=== PATIENT | male | born 1990 | race Hispanic/Latino ===

== ENCOUNTER 2025-06-16 06:14 | Inpatient (IN) | payer BC, OTHER ==
[~2025-06-16] VITALS: Ht 162.6 cm; Wt 95.3 kg
--- NOTE | 2025-06-16 06:28 | ERN ---
ED Note History of Present Illness Stated Complaint: ABD PAIN Chief Complaint: Abdominal Pain Time Seen by MD: 06:17 Dictation: This is a 34-year-old morbidly obese male who presented to the emergency room complaining of left lower quadrant abdominal pain since yesterday. He denied any nausea vomitings or diarrhea. Just had a bowel movement yesterday. No fever chills or rigors. No blood in the urine no burning micturition. Temperature 97.6 pulse 91 respirations 20 blood pressure 154/113 pulse oximetry 99% on room air Allergies: Coded Allergies: No Known Allergies (Unverified Allergy, Unknown, 06/16/25) Past Medical History Past Medical History: No Pertinent History Surgical History: Appendectomy, Other Surgical History Other: RT KNEE Family History: Negative RN Note Reviewed/Agreed w/PFSH: Yes Review of System Dictation Constitutional: Negative for fever,chills, and weight loss Eyes: Negative for injury, pain,redness, and discharge ENT: Negative for injury,pain or swelling Cardiovascular: Negative for chest pain, palpitations, and edema Respiratory: Negative for shortness of breath, cough, and wheezing, Abdomen/GI: Positive for left lower quadrant abdominal pain, denied nausea, vomiting, diarrhea, and constipation Back: Negative for injury and pain : Negative for injury, bleeding and discharge MS/Extremity: Negative for injury and deformity Skin: Negative for rash, and discoloration Neuro: Negative for headache, weakness, numbness, tingling, and seizure Psych: Negative for suicide ideation, homicidal ideation, and hallucinations Initial Vital Sign VS Vital Signs Date Time Temp Pulse Resp B/P (MAP) Pulse Ox O2 Delivery O2 Flow Rate FiO2 06/16/25 06:16 97.5 91 20 154/113 99 Room Air 06/16/25 06:39 0 21 Physical Exam Dictation General: awake, alert, NAD morbidly obese male Head/Face: Normocephalic, atraumatic Eyes: PERRL, EOMI, vision at baseline ENT: oral cavity clear, TMs clear, no signs of infection Neck: Trachea midline, supple, no nuchal rigidity Cardiovascular: RRR, normal S1/S2, No MRGs, no JVD Respiratory: CTAB, no respiratory distress, No rales or wheezes Abdomen: Soft, non-tender, non-distended, normal bowel sounds, no guarding or rebound. Skin: Warm, dry, normal turgor, no rash MS/Extremity: Pulses equal, no cyanosis, neurovascular intact, FROM Neuro: COAx4, GCS 15, strength 5/5, CN 2-12 intact, normal cerebellar exam, normal gait, Psych: Normal behavior, mood, and affect normal Extremities-trace edema without any palpable cords, Homans sign is negative Results (Laboratory/Radiology) Laboratory/Radiology Laboratory Tests Test 06/16/25 06:38 06/16/25 08:33 White Blood Count 9.4 K/uL (4.8-10.8) Red Blood Count 5.66 MIL/uL (4.50-6.20) Hemoglobin 16.1 g/dL (14.0-18.0) Hematocrit 45.8 % (42-54) Mean Corpuscular Volume 80.9 fL (79-99) Mean Corpuscular Hemoglobin 28.4 pg (27.0-33.0) Mean Corpuscular Hemoglobin Concent 35.2 g/dL (32.0-36.0) Red Cell Distribution Width 12.2 % (11.0-15.5) Platelet Count 208 K/uL (130-400) Mean Platelet Volume 10.4 fL (7.5-10.5) Immature Granulocyte % (Auto) 0.7 % (0-1) Neutrophils (%) (Auto) 59.9 % (40.0-77.0) Lymphocytes (%) (Auto) 30.1 % (21.0-51.0) Monocytes (%) (Auto) 7.2 % (3.0-13.0) Eosinophils (%) (Auto) 1.3 % (0.0-8.0) Basophils (%) (Auto) 0.8 % (0.0-5.0) Neutrophils # (Auto) 5.6 K/uL (1.8-7.7) Lymphocytes # (Auto) 2.8 K/uL (1.0-4.8) Monocytes # (Auto) 0.7 K/uL (0.1-1.0) Eosinophils # (Auto) 0.12 K/uL (0.00-0.70) Basophils # (Auto) 0.08 K/uL (0.00-0.20) Absolute Immature Granulocyte (auto 0.07 K/uL (0-1) Nucleated Red Blood Cells 0.0 % (0.0-0.19) Sodium Level 134 mmol/L (136-145) L Potassium Level 3.9 mmol/L (3.5-5.1) Chloride Level 100 mmol/L (101-111) L Carbon Dioxide Level 27 mmol/L (21-32) Blood Urea Nitrogen 8 mg/dL (7-18) Creatinine 1.0 mg/dL (0.5-1.3) Glomerular Filtration Rate Calc 102 mL/min (>90) Random Glucose 257 mg/dL (70-105) H Total Calcium 8.3 mg/dL (8.5-10.1) L Lipase 76 U/L (16-77) Urine Color LIGHT-YELLOW (YELLOW) Urine Appearance CLEAR (CLEAR) Urine pH 5.5 (5.0-8.0) Urine Specific [place] 1.012 (1.001-1.031) Urine Protein NEGATIVE mg/dL (NEGATIVE) Urine Glucose (UA) >=1000 mg/dL (NEGATIVE) H Urine Ketones NEGATIVE mg/dL (NEGATIVE) Urine Occult Blood LARGE (NEGATIVE) H Urine Nitrate NEGATIVE (NEGATIVE) Urine Bilirubin NEGATIVE mg/dL (NEGATIVE) Urine Urobilinogen 0.2 mg/dL (0.2-1.0) Urine Leukocyte Esterase NEGATIVE Meghann/uL Urine RBC TNTC /HPF (0-1) H Urine WBC 2-5 /HPF (0-1) H Urine Bacteria None /HPF (None Seen) Labs Reviewed?: Yes CT Scan Comment: [address] [id number] IMAGING REPORT Signed PATIENT: KJ BAPTISTE MR#: [id number] : 1990 SEX: M AGE: 34 LOCATION: [facility] ORDER 1 STATUS: REG REPORT#: [id number] SERVICE 1 REASON: severe abdominal painLLQ ORDERING PHYSICIAN: TERRI LOWERY MD PROCEDURE: ABD PEL WO - CT ABDOMEN/PELVIS W/O CONTRAST EXAM: CT Abdomen and Pelvis Without IV contrast CLINICAL HISTORY: severe abdominal painLLQ TECHNIQUE: Axial computed tomography images of the abdomen and pelvis without intravenous contrast. CONTRAST: No IV contrast. COMPARISON: None provided. FINDINGS: LUNG BASES: There is mild dependent airspace disease within the bilateral lower lobes that is presumed to reflect atelectasis. No pleural effusions are seen. LIVER: The liver is enlarged in size. The right hepatic lobe measures up to 22 cm. GALLBLADDER AND BILE DUCTS: The gallbladder appears within normal limits. No radioopaque gallstones are seen. No biliary ductal dilatation is evident. PANCREAS: Unremarkable. SPLEEN: The spleen is enlarged in size, measuring 14.4 cm. ADRENAL GLANDS: Unremarkable. KIDNEYS, URETERS, AND BLADDER: 3.8 mm calculus in the left proximal ureter, approximately 5 cm from the pelviureteric junction, causing mild hydroureteronephrosis with mild perinephric fat stranding. There are a few non-obstructing calculi within the lower calyces of the bilateral kidneys. The largest measures approximately 5.3 mm in the lower calyx of the left kidney. The kidneys appear within normal limits. STOMACH AND BOWEL: Unremarkable appearance of the stomach and bowel. No evidence of bowel obstruction. No evidence suggesting enteritis or colitis. Diverticulosis involving the sigmoid and descending colon, without signs of acute diverticulitis. APPENDIX: No evidence of acute appendicitis on CT examination. PERITONEUM: No free fluid. No free air. There is a hernia defect in the umbilical region measuring approximately 1.5 cm, with herniation of omental fat. LYMPH NODES: No lymphadenopathy is evident. REPRODUCTIVE: Unremarkable as visualized. VASCULATURE: No evidence of abdominal aortic aneurysm. BONES: No aggressive appearing osseous lesion. No acute osseous pathology evident. IMPRESSION: 1. Left ureteral calculus (3.8 mm) with mild hydroureteronephrosis and perinephric fat stranding. 2. Hepatomegaly, with right hepatic lobe measuring up to 22 cm. 3. Splenomegaly, measuring 14.4 cm. 4. Umbilical hernia containing omental fat. /[place] DICTATED BY: FLORENTIN VILLA Jr., MD DATE: 06/16/251118 ELECTRONICALLY SIGNED BY: FLORENTIN VILLA Jr., MD DATE: 06/16/25 111 ED Course ED Course Orders Procedure Category Date Status Time Cbc With Differential LAB 06/16/25 Complete 06:21 Urinalysis Profile LAB 06/16/25 Complete 06:21 Ketorolac PHA 06/16/25 Complete Tromethamine 30mg/Ml 06:30 Lipase LAB 06/16/25 Complete 06:21 Basic Metabolic Panel LAB 06/16/25 Complete 06:21 Ct Abdomen/Pelvis W/O CT 06/16/25 Resulted Contrast 07:02 0.9%Nacl 1000ml (Ns PHA 06/16/25 In Process 1000ml) 07:30 Ketorolac PHA 06/16/25 Complete Tromethamine 15mg/Ml 10:00 Ceftriaxone 1g Vial PHA 06/16/25 Complete (Rocephine 1g Inj) 11:00 Morphine 2mg Syg PHA 06/16/25 Complete (Morphine 2mg Syg) 11:00 Ondansetron 4mg Inj PHA 06/16/25 Complete (Zofran 4mg Inj) 11:00 Current Medications Medications (Trade) Dose Ordered Sig/[place] Route PRN Reason Start Time Stop Time Status Last Admin Dose Admin Ceftriaxone Sodium (ROCEphine 1G INJ) 1 gm ONCE ONCE IVPB 06/16/25 11:00 06/16/25 11:01 DC Ketorolac Tromethamine (toRADol) 15 mg ONCE ONCE IV 06/16/25 10:00 06/16/25 10:01 DC 06/16/25 10:24 Ketorolac Tromethamine (toRADol) 30 mg ONCE ONCE IVP 06/16/25 06:30 06/16/25 06:31 DC 06/16/25 06:47 Morphine Sulfate (morPHINE 2MG SYG) 2 mg ONCE ONCE IVP 06/16/25 11:00 06/16/25 11:01 DC Ondansetron HCl (zoFRAN 4MG INJ) 4 mg ONCE ONCE IVP 06/16/25 11:00 06/16/25 11:01 DC Sodium Chloride 1,000 ml @ 125 mls/hr ONCE ONCE IV 06/16/25 07:30 06/16/25 15:29 06/16/25 07:08 Vital Signs Date Time Temp Pulse Resp B/P (MAP) Pulse Ox O2 Delivery O2 Flow Rate FiO2 06/16/25 10:28 97.5 97 18 124/78 97 Room Air* 0 06/16/25 06:39 98.2 98 21 153/114 97 Room Air* 0 06/16/25 06:16 97.5 91 20 154/113 99 Room Air We will perform diagnostic labs, advanced imaging and administer medications according to the patient's complaint. Once the results are available, will review and personally interpreted the labs to rule out any acute life- threatening emergency the trach require immediate intervention and treatment. I will then re-evaluate the patient after treatment and diagnostic exams have return to determine whether the patient requires any further testing, can safely be discharged home or need further admission to hospital for additional treatment and evaluation. Medical Decision Making MDM Differential diagnosis: Diverticulitis, colitis, constipation, renal colic This is a 34-year-old morbidly obese male who presented to the emergency room complaining of left lower quadrant abdominal pain since yesterday. He denied any nausea vomitings or diarrhea. Just had a bowel movement yesterday. No fever chills or rigors. No blood in the urine no burning micturition. Temperature 97.6 pulse 91 respirations 20 blood pressure 154/113 pulse oximetry 99% on room air Rationale: Tests considered and ordered secondary to shared decision making include: Previous outside records reviewed: Old ER visits. Risk of complication and/or morbidity or mortality of patient management: None Medications-Per medication reconciliation Need for hospitalization: Patient does meet criteria for hospitalization. Need for emergency major/minor surgery: No There are no social concerns with this patient. Prescription drug management Prescriptions will include symptomatic care Patient's prior external medical records from other ER visits were reviewed by me as indicated. Prior testing and results from previous visits were reviewed. Prior tests were taken into account with medical decision making and resource utilization, independent historian/historians were used to obtain complete medical history. I independently interpreted the test that were performed, results were reviewed by me and considered findings on radiology if ordered. Medical management and examination interpretation discussions were had by me with other qualified healthcare professionals as indicated for the patient's care. PATIENT IS A 34-YEAR-OLD MALE COMING IN COMPLAINING OF LEFT FLANK PAIN. DUE TO THE CONTINUES PAIN THAT THE PATIENT PRESENTED WITH PATIENT WE WILL BE ADMITTED UNDER THE CARE OF HOSPITALIST GROUP FOR ONGOING MANAGEMENT. DX & DISP Disposition: Inpatient Decision to Admit Time: 11:03 Departure Impression: Primary Impression: Kidney stone Additional Impression: Pain management Condition: Stable Referrals: NONE (PCP) TERRI LOWERY MD Jun 16, 2025 06:28 FANNY PARKS MD Jun 16, 2025 10:49
[2025-06-16 06:44] LABS: IMMATURE GRANULOCYTE ABSOLUTE 0.07 K/uL (0-1); NUCLEATED RED BLOOD CELLS 0.0 % (0.0-0.19); PLATELET COUNT (AUTO) 208 K/uL (130-400); RED BLOOD CELL COUNT(AUTO) 5.66 MIL/uL (4.50-6.20); RED CELL DISTRIBUTION WIDTH 12.2 % (11.0-15.5); WHITE BLOOD COUNT (AUTO) 9.4 K/uL (4.8-10.8)
[2025-06-16 06:58] LABS: CREATININE 1.0 mg/dL (0.5-1.3); GLOMERULAR FILTR. RATE CALC 102.0 mL/min (>90); GLUCOSE,RANDOM 257.0 mg/dL (70-105); SODIUM SERUM 134.0 mmol/L (136-145); UREA NITROGEN, BLOOD 8.0 mg/dL (7-18)
[2025-06-16] MEDS: 0.9%NACL 1000ML 1,000 ML IV ONE (07:08)
[2025-06-16 08:56] LABS: APPEARANCE,URINE CLEAR (CLEAR); GLUCOSE, URINE (UA) >=1000 mg/dL (NEGATIVE); LEUKOCYTE ESTERASE ,URINE NEGATIVE Leu/uL (NEGATIVE); NITRATE,URINE NEGATIVE (NEGATIVE); OCCULT BLOOD,URINE LARGE (NEGATIVE)
[2025-06-16 09:00] LABS: ADD UA MICROSCOPIC YES
--- NOTE | 2025-06-16 10:19 | HMCIMG ---
EXAM: CT Abdomen and Pelvis Without IV contrast CLINICAL HISTORY: severe abdominal painLLQ TECHNIQUE: Axial computed tomography images of the abdomen and pelvis without intravenous contrast. CONTRAST: No IV contrast. COMPARISON: None provided. FINDINGS: LUNG BASES: There is mild dependent airspace disease within the bilateral lower lobes that is presumed to reflect atelectasis. No pleural effusions are seen. LIVER: The liver is enlarged in size. The right hepatic lobe measures up to 22 cm. GALLBLADDER AND BILE DUCTS: The gallbladder appears within normal limits. No radioopaque gallstones are seen. No biliary ductal dilatation is evident. PANCREAS: Unremarkable. SPLEEN: The spleen is enlarged in size, measuring 14.4 cm. ADRENAL GLANDS: Unremarkable. KIDNEYS, URETERS, AND BLADDER: 3.8 mm calculus in the left proximal ureter, approximately 5 cm from the pelviureteric junction, causing mild hydroureteronephrosis with mild perinephric fat stranding. There are a few non-obstructing calculi within the lower calyces of the bilateral kidneys. The largest measures approximately 5.3 mm in the lower calyx of the left kidney. The kidneys appear within normal limits. STOMACH AND BOWEL: Unremarkable appearance of the stomach and bowel. No evidence of bowel obstruction. No evidence suggesting enteritis or colitis. Diverticulosis involving the sigmoid and descending colon, without signs of acute diverticulitis. APPENDIX: No evidence of acute appendicitis on CT examination. PERITONEUM: No free fluid. No free air. There is a hernia defect in the umbilical region measuring approximately 1.5 cm, with herniation of omental fat. LYMPH NODES: No lymphadenopathy is evident. REPRODUCTIVE: Unremarkable as visualized. VASCULATURE: No evidence of abdominal aortic aneurysm. BONES: No aggressive appearing osseous lesion. No acute osseous pathology evident. IMPRESSION: 1. Left ureteral calculus (3.8 mm) with mild hydroureteronephrosis and perinephric fat stranding. 2. Hepatomegaly, with right hepatic lobe measuring up to 22 cm. 3. Splenomegaly, measuring 14.4 cm. 4. Umbilical hernia containing omental fat. /[place]
--- NOTE | 2025-06-16 11:28 | HP ---
[facility] HISTORY AND PHYSICAL Date of Service: Jun 16, 2025 Time of Service: 11:28 HISTORY OF PRESENT ILLNESS: DATE OF SERVICE: 06/16/2025 34-year-old male with no significant past medical history presented to the hospital secondary to abdominal pain. Patient states his pain started today around 5:00 a.m.. The pain was located in the left lower quadrant radiating from his left flank area. Denied any nausea, vomiting, fever, chills, diarrhea, constipation associated with the pain. Denied any chest pain, shortness of breath, cough, sputum production. Denied any dysuria, hematuria. The patient has more darkish color urine from before. He denies any previous history of nephrolithiasis. Denied any previous passage of kidney stones. He has a history of gout which is controlled at this time. He does not take any medications at home. Labs were notable for white count of 9.4, hemoglobin was 16.1, platelet count was 208 K, sodium was 134, potassium was 3.9, blood glucose 257, calcium was 8.3, lipase was [address] abdomen pelvis which showed left ureteral calculus 3.8 mm with mild hydroureteronephrosis and perinephric fat stranding. He also had nonobstructing calculi in the lower calyces of the bilateral kidney. Largest was noted to measure around a 5.3 Mm in the lower calyx of the left kidney. Was noted to have hepatomegaly and splenomegaly. There was a umbilical hernia containing omental fat. REVIEW OF SYSTEMS CONSTITUTIONAL: Denies fevers, chills, or night sweats. No unintentional weight loss reported. NEUROLOGICAL: Denies headache, amaurosis fugax, motor weakness, sensory deficit, vertigo/spinning sensation, gait abnormalities, or tremors. ENT: No hearing loss, otalgia, otorrhea, rhinitis, rhinorrhea, hoarseness, or sore throat. CARDIOVASCULAR: Denies any exertional angina, dyspnea on exertion, orthopnea, paroxysmal nocturnal dyspnea, palpitations, life-threatening arrhythmias, claudication. PULMONARY: Denies any shortness of breath, cough, phlegm/sputum, hemoptysis, pleuritic chest pain. GASTROINTESTINAL: Positive for abdominal pain. Denied any nausea, vomiting, changes in his bowel movement. GENITOURINARY: Denies frequency, urgency, nocturia, hematuria or incontinence (Storage/Irritative symptoms.) Low urinary stream, straining to void, urinary intermittency or hesitancy, splitting of the voiding stream, terminal dribbling. ENDOCRINOLOGIC: Denies polyuria, polydipsia, polyphagia or heat/cold intolerances. HEMATOLOGIC: Denies thrombophilia/previous clots, or coagulopathy/bleeding dis orders. ONCOLOGIC: Denies personal history of malignancy. DERMATOLOGIC: Denies rashes or pruritus. PSYCHIATRIC: Denies any suicidal or homicidal ideation. Denies hallucinations. PAST MEDICAL HISTORY: History of gout PAST SURGICAL HISTORY: History of appendectomy history of right knee surgery PAST SOCIAL HISTORY: Denied any tobacco use, alcohol use, drug use. Patient used to vape but quit around one year ago FAMILY HISTORY: Family history of gout Coded Allergies: No Known Allergies (Unverified Allergy, Unknown, 06/16/25) PHYSICAL EXAM GENERAL APPEARANCE: The patient is awake, alert, and oriented, in no acute cardiopulmonary distress. NEUROLOGICAL: Cranial nerves II-XII grossly intact. Motor is 5/5 in bilateral upper and lower extremities proximal to distal. No sensory deficits. HEENT: Face is symmetric. Pupils are equal and reactive. Extraocular movements are intact. NECK: Supple. No JVD. No thyromegaly. No submental, submandibular, pre- /postauricular, occipital or supraclavicular lymphadenopathy. CHEST: Normal chest expansion. No Telemetry. LUNGS: Absence of any rales, rhonchi or any wheezing. CARDIOVASCULAR: Regular. S1 and S2 normal. No appreciable rubs, murmurs or gallops. ABDOMEN: Soft, nontender, and nondistended. There is no rebound, voluntary guarding, or rigidity. : Deferred. No Li. No CVA tenderness EXTREMITIES: Non-edematous and not cyanotic. No clubbing. Good capillary refill. SKIN: No skin breakdown. Vital Sign (Last 24 Hours) 06/16/25 10:28 Temp 97.5 Pulse 97 Resp 18 B/P (MAP) 124/78 Pulse Ox 97 O2 Delivery Room Air* O2 Flow Rate 0 FiO2 21 LABS: Laboratory: Test 06/16/25 08:33 06/16/25 06:38 Range/Units Urine Color LIGHT-YELLOW YELLOW Urine Appearance CLEAR CLEAR Urine pH 5.5 5.0-8.0 Urine Specific [place] 1.012 1.001-1.031 Urine Protein NEGATIVE NEGATIVE mg/dL Urine Glucose (UA) >=1000 H NEGATIVE mg/dL Urine Ketones NEGATIVE NEGATIVE mg/dL Urine Occult Blood LARGE H NEGATIVE Urine Nitrate NEGATIVE NEGATIVE Urine Bilirubin NEGATIVE NEGATIVE mg/dL Urine Urobilinogen 0.2 0.2-1.0 mg/dL Urine Leukocyte Esterase NEGATIVE NEGATIVE Meghann/uL Urine RBC TNTC H 0-1 /HPF Urine WBC 2-5 H 0-1 /HPF Urine Bacteria None None Seen /HPF White Blood Count 9.4 4.8-10.8 K/uL Red Blood Count 5.66 4.50-6.20 MIL/uL Hemoglobin 16.1 14.0-18.0 g/dL Hematocrit 45.8 42-54 % Mean Corpuscular Volume 80.9 79-99 fL Mean Corpuscular Hemoglobin 28.4 27.0-33.0 pg Mean Corpuscular Hemoglobin Concent 35.2 32.0-36.0 g/dL Red Cell Distribution Width 12.2 11.0-15.5 % Platelet Count 208 130-400 K/uL Mean Platelet Volume 10.4 7.5-10.5 fL Immature Granulocyte % (Auto) 0.7 0-1 % Neutrophils (%) (Auto) 59.9 40.0-77.0 % Lymphocytes (%) (Auto) 30.1 21.0-51.0 % Monocytes (%) (Auto) 7.2 3.0-13.0 % Eosinophils (%) (Auto) 1.3 0.0-8.0 % Basophils (%) (Auto) 0.8 0.0-5.0 % Neutrophils # (Auto) 5.6 1.8-7.7 K/uL Lymphocytes # (Auto) 2.8 1.0-4.8 K/uL Monocytes # (Auto) 0.7 0.1-1.0 K/uL Eosinophils # (Auto) 0.12 0.00-0.70 K/uL Basophils # (Auto) 0.08 0.00-0.20 K/uL Absolute Immature Granulocyte (auto 0.07 0-1 K/uL Nucleated Red Blood Cells 0.0 0.0-0.19 % Sodium Level 134 L 136-145 mmol/L Potassium Level 3.9 3.5-5.1 mmol/L Chloride Level 100 L 101-111 mmol/L Carbon Dioxide Level 27 21-32 mmol/L Blood Urea Nitrogen 8 7-18 mg/dL Creatinine 1.0 0.5-1.3 mg/dL Glomerular Filtration Rate Calc 102 >90 mL/min Random Glucose 257 H 70-105 mg/dL Total Calcium 8.3 L 8.5-10.1 mg/dL Lipase 76 16-77 U/L DIAGNOSTICS / RADIOLOGY: CT abdomen Was reviewed ASSESSMENT: Symptomatic left-sided nephrolithiasis Mild left hydroureteronephrosis secondary to neck Hematuria Hepatomegaly Splenomegaly Obesity BMI 36.1 Hyperglycemia PLAN: - patient to medical-surgical unit -in reference to symptomatic nephrolithiasis. Patient will be started on Flomax. We will start patient on IV fluids and morphine and Toradol for pain control. We will also request consultation with Nephrology. Continue patient on Rocephin -obtain a liver ultrasound for further evaluation of hepatomegaly. Obtain LFT panel. -check hemoglobin A1c, , TSH -further orders per hospitalization course Advanced Care Planning Which of the following were discussed: Hospice care: Yes __ No _x_ Therapeutic options: Yes __ No __ Advance directives: Yes __ No __ Other discussions: Patient is full code Discussed with who?: patient (Patient, family or surrogates) Voluntary nature of this service was explained to the patient? Yes _x_ No __ Amount of time spent: 20 minutes SRAVANI Sin MD, MD Jun 16, 2025 11:28
[2025-06-16] MEDS ORDERED: PoTASSium chl 10% ELIXIR 20MEQ 20 MEQ/15 ML UDCUP PO PRN (11:30)
[2025-06-16 12:00] LABS: TOTAL PROTEIN, SERUM 7.2 g/dL (6.0-8.3)
[2025-06-16] MEDS: 0.9%NACL 1000ML 1,000 ML IV SCH (12:02)
[2025-06-16] MEDS ORDERED: DEXTROSE 50%-WATER 50 ML DISP.SYRIN IV PRN (12:30)
[2025-06-16] MEDS ORDERED: GLUCAGON 1MG KIT 1 MG ML IM PRN (12:30)
[2025-06-16 13:02] LABS: ASPARTATE AMINOTRANSFERASE 32.0 U/L (10-37)
[2025-06-16 13:30] VITALS: O2SAT 100
[2025-06-16 13:35] VITALS: BP 162/105; PULSE 80; RESP 20; TEMP 98.4
[2025-06-16 16:10] VITALS: BP 145/93; PULSE 78; RESP 20; TEMP 98.1
--- NOTE | 2025-06-16 19:20 | CONS ---
CONSULTATION NOTE Date of Service: Jun 16, 2025 Reason for Consultation: Obstructing 3-4 mm left proximal ureteral calculus with symptoms of renal colic Requesting Physician: Yehuda Gandhi MD HISTORY OF PRESENT ILLNESS: 34-year-old male with no significant past medical history presented to the hospital secondary to abdominal pain. Patient states his pain started today around 5:00 a.m.. The pain was located in the left lower quadrant, described as a stabbing ache, radiating from his left flank area, severity at the time of presentation was an eight on a scale of 1-10. Denied any nausea, vomiting, fever, chills, diarrhea, constipation associated with the pain. Denied any dysuria, hematuria. The patient has more darkish color urine from before. He denies any previous history of nephrolithiasis. Denied any previous passage of kidney stones. He has a history of gout which is controlled at this time. He does not take any medications at home. Labs were notable for white count of 9.4, hemoglobin was 16.1, platelet count was 208 K, sodium was 134, potassium was 3.9, blood glucose 257, calcium was 8.3, lipase was 66. CT abdomen pelvis stone protocol showed left ureteral calculus 3.8 mm with mild hydroureteronephrosis and perinephric fat stranding. He also had nonobstructing calculi in the lower calyces of the bilateral kidney. Largest was noted to measure around a 5.3 mm in the lower calyx of the left kidney. Was noted to have hepatomegaly and splenomegaly. There was a umbilical hernia containing omental fat. Patient was admitted to the floor for supportive care with a urological consult. REVIEW OF SYSTEMS CONSTITUTIONAL: Denies fever, chills, or fatigue. HEAD/FACE: No signs of trauma. EENT: Denies eye pain, blurred vision, double vision, or light sensitivity. RESPIRATORY: Denies shortness of breath, cough, wheezing CARDIOVASCULAR: Denies chest pain, palpitation, syncope GASTROINTESTINAL/ABDOMINAL: Denies abdominal pain, constipation, diarrhea, nausea or vomiting GENITOURINARY: Denies dysuria or hematuria. MUSCULOSKELETAL: Denies joint pain, tenderness, or trauma. INTEGUMENTARY: Denies rash or itchiness NEUROLOGICAL/PSYCH: Denies anxiety, depression, heat or cold intolerance. PAST MEDICAL HISTORY: History of gout PAST SURGICAL HISTORY: Appendectomy, left knee surgery PAST SOCIAL HISTORY: Denies smoking cigarettes, denies ethanol, denies recreational drugs. Used to vape but quit about a year ago FAMILY HISTORY: Noncontributory Coded Allergies: No Known Allergies (Unverified Allergy, Unknown, 06/16/25) PHYSICAL EXAM EYES: Anicteric. Pupils equal and reactive. HENT: No oral thrush seen, moist Oral mucosa NECK: Supple, no JVD or thyromegaly. LUNGS: Good air entry. No rales, no rhonchi. CARDIOVASCULAR: S1, S2 regular. No murmur heard. ABDOMEN: Soft, non tender, bowel sounds present, no organomegaly CENTRAL NERVOUS SYSTEM: Awake, alert, oriented x 3. No focal deficits. SKIN: No rashes, no swelling. LYMPHATICS: No peripheral lymphadenopathy MUSCULOSKELETAL: No joint swelling, erythema or tenderness. EXTREMITIES: No cyanosis or clubbing BACK: No deformity, no pressure ulcer. GENITOURINARY: Noncontributory Vital Sign (Last 24 Hours) 06/16/25 06/16/25 10:28 16:10 Temp 98.1 Pulse 78 Resp 20 B/P (MAP) 145/93 Pulse Ox 100 O2 Delivery Room Air O2 Flow Rate 0 FiO2 21 LABS: Laboratory: Test 06/16/25 16:25 06/16/25 08:33 06/16/25 06:38 Range/Units Whole Blood Glucose 169 H 70-110 MG/DL Urine Color LIGHT-YELLOW YELLOW Urine Appearance CLEAR CLEAR Urine pH 5.5 5.0-8.0 Urine Specific [place] 1.012 1.001-1.031 Urine Protein NEGATIVE NEGATIVE mg/dL Urine Glucose (UA) >=1000 H NEGATIVE mg/dL Urine Ketones NEGATIVE NEGATIVE mg/dL Urine Occult Blood LARGE H NEGATIVE Urine Nitrate NEGATIVE NEGATIVE Urine Bilirubin NEGATIVE NEGATIVE mg/dL Urine Urobilinogen 0.2 0.2-1.0 mg/dL Urine Leukocyte Esterase NEGATIVE NEGATIVE Meghann/uL Urine RBC TNTC H 0-1 /HPF Urine WBC 2-5 H 0-1 /HPF Urine Bacteria None None Seen /HPF White Blood Count 9.4 4.8-10.8 K/uL Red Blood Count 5.66 4.50-6.20 MIL/uL Hemoglobin 16.1 14.0-18.0 g/dL Hematocrit 45.8 42-54 % Mean Corpuscular Volume 80.9 79-99 fL Mean Corpuscular Hemoglobin 28.4 27.0-33.0 pg Mean Corpuscular Hemoglobin Concent 35.2 32.0-36.0 g/dL Red Cell Distribution Width 12.2 11.0-15.5 % Platelet Count 208 130-400 K/uL Mean Platelet Volume 10.4 7.5-10.5 fL Immature Granulocyte % (Auto) 0.7 0-1 % Neutrophils (%) (Auto) 59.9 40.0-77.0 % Lymphocytes (%) (Auto) 30.1 21.0-51.0 % Monocytes (%) (Auto) 7.2 3.0-13.0 % Eosinophils (%) (Auto) 1.3 0.0-8.0 % Basophils (%) (Auto) 0.8 0.0-5.0 % Neutrophils # (Auto) 5.6 1.8-7.7 K/uL Lymphocytes # (Auto) 2.8 1.0-4.8 K/uL Monocytes # (Auto) 0.7 0.1-1.0 K/uL Eosinophils # (Auto) 0.12 0.00-0.70 K/uL Basophils # (Auto) 0.08 0.00-0.20 K/uL Absolute Immature Granulocyte (auto 0.07 0-1 K/uL Nucleated Red Blood Cells 0.0 0.0-0.19 % Sodium Level 134 L 136-145 mmol/L Potassium Level 3.9 3.5-5.1 mmol/L Chloride Level 100 L 101-111 mmol/L Carbon Dioxide Level 27 21-32 mmol/L Blood Urea Nitrogen 8 7-18 mg/dL Creatinine 1.0 0.5-1.3 mg/dL Glomerular Filtration Rate Calc 102 >90 mL/min Random Glucose 257 H 70-105 mg/dL Hemoglobin A1c 11.1 H 4.0-6.0 % Estimated Average Glucose (eAG) 272 H 70-126 mg/dL Total Calcium 8.3 L 8.5-10.1 mg/dL Total Bilirubin 0.4 0.2-1.0 mg/dL Direct Bilirubin 0.1 0.0-0.3 mg/dL Aspartate Amino Transf (AST/SGOT) 32 10-37 U/L Alanine Aminotransferase (ALT/SGPT) 69 12-78 U/L Alkaline Phosphatase 147 H 50-136 U/L Total Protein 7.2 6.0-8.3 g/dL Albumin 3.7 3.5-5.0 g/dL Lipase 76 16-77 U/L DIAGNOSTICS / RADIOLOGY: CT abdomen and pelvis, stone protocol, evidence of a 3-4 mm left proximal ureteral calculus with mild hydroureteronephrosis. There are nonobstructing calyceal stones, more stone burden on the left than on the right. ASSESSMENT: 34-year-old man presents to the hospital secondary to renal colic symptoms caused by 3-4 mm stone in the left proximal ureter. PLAN: 1. Continue supportive care, aggressive pain management, Ketoralac has been shown to work very well, fluid management and nausea control if any. 2. The evidence is not very convincing on tamsulosin for proximal stones by sidney barrerant can be started on tamsulosin, with concurrent judicious fluid management 3. We will give patient at least a 24-48 hour window to see if he is able to pass the stone. Normally we will repeat a CT imaging at that time they make a decision about surgical intervention if no change in clinical picture. 4. Thank you for involving us in the care of this patient. 60 minute was spent to complete this visit, more than half of the time was spent in counseling and coordination of care and addressing questions posed by patient, some time was spent discussing with members of his care team, the rest of the time was spent reviewing medical records especially laboratory data and imaging studies. SUSIE RHODES MD Jun 16, 2025 19:20
[2025-06-16 20:00] VITALS: BP 144/84; PULSE 86; RESP 18; TEMP 98.7; O2SAT 95
[2025-06-16] MEDS: FAMOTIDINE 20MG VIAL IV SCH (21:08)
--- NOTE | 2025-06-16 22:54 | NUR ---
DIET MODIFIED RULA FILING MACHINE OPERATOR ON FLOOR FOR WALKING ROUNDS. ADVISED OF PATIENT'S DIABETES DIAGNOSIS AND CURRENT BLAND DIET. ASKED IF OKAY TO PLACE THE PATIENT ON BLAND DIET/ CONSISTENT CARB. PER RULA FILING MACHINE OPERATOR: OKAY TO ADD CONSISTENT CARB ON PATIENT'S DIET ORDER. ORDER NOTED AND CARRIED OUT.
[2025-06-17] VITALS (8 sets, daily range): BP systolic 121–150; BP diastolic 68–103; PULSE 72–102; RESP 16–20; TEMP 98–98.9; O2SAT 97
--- NOTE | 2025-06-17 00:31 | HMCIMG ---
EXAMINATION: ULTRASOUND OF THE ABDOMEN (LIMITED) WITH COLOR DOPPLER. CLINICAL HISTORY: Assess liver. COMPARISON: CT abdomen and pelvis without contrast from the same day. TECHNIQUE: Real-time grayscale ultrasound images of the abdomen. In addition, color Doppler is medically necessary to perform in order to evaluate vascularity and blood flow. FINDINGS: Liver: Bulky in caliber, the right hepatic lobe measures 19.9 cm in the craniocaudal dimension. There is increased echogenicity of the hepatic parenchyma. There is no focal hepatic abnormality or intrahepatic biliary ductal dilatation. There is normal spectral Doppler of the main portal vein (PSV is 19 cm/s). Gallbladder: Within normal limits with normal wall thickness (0.1 cm). No hyperemia or pericholecystic free fluid. There is no cholelithiasis. Common bile duct is normal in caliber, measuring 0.3 cm. Pancreas: Head and body appear normal in caliber and echotexture. No calcification or dilated pancreatic duct. Tail is obscured by overlying bowel gas. The right kidney is normal in caliber, the right kidney measures 12.9 x 4.9 x 4.2 cm in craniocaudal, AP, and transverse dimensions respectively. There is normal renal cortical thickness, and cortical echogenicity. There is no renal calculus or hydronephrosis. IMPRESSION: Hepatomegaly with hepatic steatosis. Left renal calculi which was seen in CT study from the same day are not visualized. /Jose Manuel
[2025-06-17 06:25] LABS: IMMATURE GRANULOCYTE ABSOLUTE 0.04 K/uL (0-1); NUCLEATED RED BLOOD CELLS 0.0 % (0.0-0.19); PLATELET COUNT (AUTO) 158 K/uL (130-400); RED BLOOD CELL COUNT(AUTO) 5.24 MIL/uL (4.50-6.20); RED CELL DISTRIBUTION WIDTH 12.0 % (11.0-15.5); WHITE BLOOD COUNT (AUTO) 10.9 K/uL (4.8-10.8)
[2025-06-17 06:37] LABS: CREATININE 1.4 mg/dL (0.5-1.3); GLOMERULAR FILTR. RATE CALC 68.0 mL/min (>90); GLUCOSE,RANDOM 173.0 mg/dL (70-105); SODIUM SERUM 136.0 mmol/L (136-145); UREA NITROGEN, BLOOD 10.0 mg/dL (7-18)
[2025-06-17] MEDS: PoTASSium chloRIDE 20MEQ ER 20 MEQ ERTAB PO PRN (06:50)
--- NOTE | 2025-06-17 11:06 | NUR ---
DCP: [facility] met with pt and Monika Tapia [phone]. 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 Pt state he thought he had insurance until speaking to and was informed he never did paperwork. Pt was told he has to go into and complete upon dc. Pt has no PCP, uses [facility] for rx. Community resources given. Pt lives with his and 3 daughters in [facility], deny issues affording home and food. Pt uses no provider or services. Pt is independent of all his ADLS. DCP is home Addendum: 06/17/25 at 1110 by FORTUNATO DAY Amended: Links added.
--- NOTE | 2025-06-17 17:05 | HMCIMG ---
EXAM: CT Abdomen and Pelvis without IV contrast CLINICAL HISTORY: RENAL CALCULI EVALUATION TECHNIQUE: Axial computed tomography images of the abdomen and pelvis without intravenous contrast. CT scan performed according to ALARA. Automated exposure control used during exam. CONTRAST: without intravenous contrast. COMPARISON: CT images dated June 16, 2025 FINDINGS: Mild airspace disease within the left lung base. Trace left pleural effusion. Limited evaluation of the abdominal organs without intravenous contrast. There is no focal abnormality appreciated within the liver; however there is hepatic steatosis. The gallbladder, bilateral adrenal glands, spleen, and pancreas are unremarkable. There is a 0.4 cm calculus within the mid left ureter (approximately 6.0 cm distal to the left ureteropelvic junction) resulting in mild left hydronephrosis and left perinephric fat stranding. Nonobstructing calculi are noted within a left inferior pole renal calyx. No additional radiopaque calculus appreciated. Bowel loops are normal in caliber without evidence of obstruction, ileus, or obvious bowel wall thickening. No CT evidence of acute appendicitis. The mild to within the unopacified bladder. Prostate and seminal vesicles are normal in caliber. There is no ascites or lymphadenopathy. There is no acute or suspicious osseous abnormality. IMPRESSION: 1. 0.4 cm left ureteral calculus with mild left hydronephrosis and perinephric fat stranding. 2. Nonobstructing left inferior pole renal calyx calculi. 3. Mild left basal airspace disease with trace left pleural effusion. /[place]
--- NOTE | 2025-06-17 17:40 | PN ---
[facility] PROGRESS NOTE Date of Service: Jun 17, 2025 Time of Service: 17:39 SUBJECTIVE: 34-year-old male with no significant past medical history presented to the hospital secondary to abdominal pain. Patient states his pain started today around 5:00 a.m.. The pain was located in the left lower quadrant radiating from his left flank area. Denied any nausea, vomiting, fever, chills, diarrhea, constipation associated with the pain. Denied any chest pain, shortness of breath, cough, sputum production. Denied any dysuria, hematuria. The patient has more darkish color urine from before. He denies any previous history of nephrolithiasis. Denied any previous passage of kidney stones. He has a history of gout which is controlled at this time. He does not take any medications at home. Labs were notable for white count of 9.4, hemoglobin was 16.1, platelet count was 208 K, sodium was 134, potassium was 3.9, blood glucose 257, calcium was 8.3, lipase was [address] abdomen pelvis which showed left ureteral calculus 3.8 mm with mild hydroureteronephrosis and perinephric fat stranding. He also had nonobstructing calculi in the lower calyces of the bilateral kidney. Largest was noted to measure around a 5.3 Mm in the lower calyx of the left kidney. Was noted to have hepatomegaly and splenomegaly. There was a umbilical hernia containing omental fat. 06/17/25: Patient appeared stable but still in pain. His vitals are mostly stable with his temperature at 98.2, pulse at 99, respiratory rate at 20 and blood pressure at 147/103, breathing comfortably on room air. He is on morphine 2 mg and ketoralac 15 mg for the pain. He has also juliano started on IV fluids and Flomax per urology recommendation. Urology also recommended, that they will give patient at least a 24-48 hour window to see if he is able to pass the stone. Normally we will repeat a CT imaging at that time they make a decision about surgical intervention if no change in clinical picture. So we performed a repeat CT in the evening today which showed the stone has moved from proximal ureter to mid ureter. We will wait for recommendation from urology for further treatment. Patient also seen with hepatomegaly and splenomegaly since the first CT, but patients LFTs and remaining labs are normal. REVIEW OF SYSTEMS CONSTITUTIONAL: Denies fevers, chills, or night sweats. No unintentional weight loss reported. NEUROLOGICAL: Denies headache, motor weakness, sensory deficit, vertigo/spinning sensation, gait abnormalities, or tremors. ENT: No hearing loss, rhinitis, rhinorrhea, hoarseness, or sore throat. CARDIOVASCULAR: Denies any exertional angina, dyspnea on exertion, orthopnea, paroxysmal nocturnal dyspnea PULMONARY: Denies any shortness of breath, cough, phlegm/sputum, hemoptysis, pleuritic chest pain. GASTROINTESTINAL: Positive for abdominal pain. Denied any nausea, vomiting, changes in his bowel movement. GENITOURINARY: Denies frequency, urgency, nocturia, hematuria or incontinence ENDOCRINOLOGIC: Denies polyuria, polydipsia, polyphagia or heat/cold into lerances. HEMATOLOGIC: Denies thrombophilia/previous clots, or coagulopathy/bleeding disorders. DERMATOLOGIC: Denies rashes or pruritus. PHYSICAL EXAM GENERAL APPEARANCE: The patient is awake, alert, and oriented, in no acute cardiopulmonary distress. NEUROLOGICAL: Cranial nerves II-XII grossly intact. Motor is 5/5 in bilateral upper and lower extremities proximal to distal. No sensory deficits. HEENT: Face is symmetric. Pupils are equal and reactive. Extraocular movements are intact. NECK: Supple. No JVD. No thyromegaly. No lymphadenopathy. CHEST: Normal chest expansion. No Telemetry. LUNGS: Absence of any rales, rhonchi or any wheezing. CARDIOVASCULAR: Regular. S1 and S2 normal. No appreciable rubs, murmurs or gallops. ABDOMEN: Soft, nontender, and nondistended. There is no rebound, voluntary guarding, or rigidity. : Deferred. No Li. No CVA tenderness EXTREMITIES: Non-edematous and not cyanotic. No clubbing. Good capillary refill. SKIN: No skin breakdown. Vital Signs (last 8hr) Date Time Temp Pulse Resp B/P (MAP) Pulse Ox O2 Delivery O2 Flow Rate FiO2 06/17/25 16:07 99.0 93 16 143/98 99 Room Air 06/17/25 10:47 98.1 102 18 150/91 100 Room Air LABS: Laboratory: Test 06/17/25 15:57 06/17/25 03:54 06/16/25 08:33 9/21/25 06:38 Range/Units Whole Blood Glucose 184 H 70-110 MG/DL Bedside Glucose Comment Notified Nurse White Blood Count 10.9 H 4.8-10.8 K/uL Red Blood Count 5.24 4.50-6.20 MIL/uL Hemoglobin 14.8 14.0-18.0 g/dL Hematocrit 43.4 42-54 % Mean Corpuscular Volume 82.8 79-99 fL Mean Corpuscular Hemoglobin 28.2 27.0-33.0 pg Mean Corpuscular Hemoglobin Concent 34.1 32.0-36.0 g/dL Red Cell Distribution Width 12.0 11.0-15.5 % Platelet Count 158 130-400 K/uL Mean Platelet Volume 10.9 H 7.5-10.5 fL Immature Granulocyte % (Auto) 0.4 0-1 % Neutrophils (%) (Auto) 78.2 H 40.0-77.0 % Lymphocytes (%) (Auto) 12.7 L 21.0-51.0 % Monocytes (%) (Auto) 7.7 3.0-13.0 % Eosinophils (%) (Auto) 0.6 0.0-8.0 % Basophils (%) (Auto) 0.4 0.0-5.0 % Neutrophils # (Auto) 8.5 H 1.8-7.7 K/uL Lymphocytes # (Auto) 1.4 1.0-4.8 K/uL Monocytes # (Auto) 0.8 0.1-1.0 K/uL Eosinophils # (Auto) 0.06 0.00-0.70 K/uL Basophils # (Auto) 0.04 0.00-0.20 K/uL Absolute Immature Granulocyte (auto 0.04 0-1 K/uL Nucleated Red Blood Cells 0.0 0.0-0.19 % Sodium Level 136 136-145 mmol/L Potassium Level 3.6 3.5-5.1 mmol/L Chloride Level 101 101-111 mmol/L Carbon Dioxide Level 25 21-32 mmol/L Blood Urea Nitrogen 10 7-18 mg/dL Creatinine 1.4 H 0.5-1.3 mg/dL Glomerular Filtration Rate Calc 68 >90 mL/min Random Glucose 173 H 70-105 mg/dL Total Calcium 8.2 L 8.5-10.1 mg/dL Thyroid Stimulating Hormone (TSH) 0.76 0.36-3.74 uIU/mL Urine Color LIGHT-YELLOW YELLOW Urine Appearance CLEAR CLEAR Urine pH 5.5 5.0-8.0 Urine Specific [place] 1.012 1.001-1.031 Urine Protein NEGATIVE NEGATIVE mg/dL Urine Glucose (UA) >=1000 H NEGATIVE mg/dL Urine Ketones NEGATIVE NEGATIVE mg/dL Urine Occult Blood LARGE H NEGATIVE Urine Nitrate NEGATIVE NEGATIVE Urine Bilirubin NEGATIVE NEGATIVE mg/dL Urine Urobilinogen 0.2 0.2-1.0 mg/dL Urine Leukocyte Esterase NEGATIVE NEGATIVE Meghann/uL Urine RBC TNTC H 0-1 /HPF Urine WBC 2-5 H 0-1 /HPF Urine Bacteria None None Seen /HPF Hemoglobin A1c 11.1 H 4.0-6.0 % Estimated Average Glucose (eAG) 272 H 70-126 mg/dL Total Bilirubin 0.4 0.2-1.0 mg/dL Direct Bilirubin 0.1 0.0-0.3 mg/dL Aspartate Amino Transf (AST/SGOT) 32 10-37 U/L Alanine Aminotransferase (ALT/SGPT) 69 12-78 U/L Alkaline Phosphatase 147 H 50-136 U/L Total Protein 7.2 6.0-8.3 g/dL Albumin 3.7 3.5-5.0 g/dL Lipase 76 16-77 U/L Current Medications Medications (Trade) Dose Ordered Sig/[place] Route PRN Reason Start Time Stop Time Status Last Admin Dose Admin Acetaminophen (TYLenol 500MG TAB) 500 mg Q6H PRN PO MILD PAIN (1-3) 06/16/25 11:30 07/16/25 11:29 06/16/25 17:49 500 MG Ceftriaxone Sodium (ROCEphine 1G INJ) 1 gm Q24H IVPB 06/17/25 09:00 06/27/25 08:59 06/17/25 08:27 1 GM Dextrose (D50w) 50 ml AD PRN IV HYPOGLYCEMIA PROTOCOL 06/16/25 12:30 07/16/25 12:29 Famotidine (Pepcid 20mg Vial) 20 mg BID IV 06/16/25 21:00 07/16/25 20:59 06/17/25 08:29 20 MG Glucagon (Glucagon 1mg Kit) 1 mg AD PRN IM HYPOGLYCEMIA PROTOCOL 06/16/25 12:30 07/16/25 12:29 Hydralazine HCl (APRESOLine 20MG INJ) 10 mg Q6H PRN IV ADMINISTER FOR SBP > 180 06/16/25 14:00 07/16/25 13:59 Insulin Human Regular (humuLIN R 100 UNIT/ML 3ML) INSULIN SLIDING SCAL... ACHS SQ 06/16/25 16:30 07/16/25 16:29 06/17/25 16:19 2 UNIT Ketorolac Tromethamine (toRADol) 15 mg Q6H PRN IV MODERATE PAIN (4-6) 06/16/25 11:30 06/21/25 11:29 06/16/25 14:30 15 MG Morphine Sulfate (morPHINE 2MG SYG) 2 mg Q6H PRN IVP SEVERE PAIN (7-10) 06/16/25 11:30 06/23/25 11:29 06/16/25 15:44 2 MG Ondansetron HCl (zoFRAN 4MG INJ) 4 mg Q6H PRN IVP NAUSEA/VOMITING 06/16/25 11:30 07/16/25 11:29 Potassium Chloride 100 ml @ 100 mls/hr AD PRN IV POTASSIUM PROTOCOL 06/16/25 11:30 07/16/25 11:29 Potassium Chloride (K-Dur/Klor-Con 20meq) 20 meq AD PRN PO POTASSIUM PROTOCOL 06/16/25 11:30 07/16/25 11:29 06/17/25 06:50 20 MEQ Potassium Chloride (KCl 10% Elixir 20meq/15ml) 20 meq AD PRN PO POTASSIUM PROTOCOL 06/16/25 11:30 07/16/25 11:29 Sodium Chloride 1,000 ml @ 100 mls/hr Q10H IV 06/16/25 11:30 07/16/25 11:29 06/17/25 08:27 100 MLS/HR Tamsulosin HCl (FloMAX) 0.4 mg DAILY PO 06/17/25 09:00 07/17/25 08:59 06/17/25 08:26 0.4 MG DIAGNOSTICS / RADIOLOGY: [facility] [place] [address] [place] [address] IMAGING REPORT Signed PATIENT: KJ BAPTISTE MR#: [id number] : 1990 SEX: M AGE: 34 LOCATION: 4DH ORDER [id number] STATUS: ADM IN REPORT#: [id number] SERVICE [id number] REASON: RENAL CALCULI EVALUATION ORDERING PHYSICIAN: STEPHANIA CLEANING MD PROCEDURE: ABD PEL WO - CT ABDOMEN/PELVIS W/O CONTRAST EXAM: CT Abdomen and Pelvis without IV contrast CLINICAL HISTORY: RENAL CALCULI EVALUATION TECHNIQUE: Axial computed tomography images of the abdomen and pelvis without intravenous contrast. CT scan performed according to ALARA. Automated exposure control used during exam. CONTRAST: without intravenous contrast. COMPARISON: CT images dated June 16, 2025 FINDINGS: Mild airspace disease within the left lung base. Trace left pleural effusion. Limited evaluation of the abdominal organs without intravenous contrast. There is no focal abnormality appreciated within the liver; however there is hepatic steatosis. The gallbladder, bilateral adrenal glands, spleen, and pancreas are unremarkable. There is a 0.4 cm calculus within the mid left ureter (approximately 6.0 cm distal to the left ureteropelvic junction) resulting in mild left hydronephrosis and left perinephric fat stranding. Nonobstructing calculi are noted within a left inferior pole renal calyx. No additional radiopaque calculus appreciated. Bowel loops are normal in caliber without evidence of obstruction, ileus, or obvious bowel wall thickening. No CT evidence of acute appendicitis. The mild to within the unopacified bladder. Prostate and seminal vesicles are normal in caliber. There is no ascites or lymphadenopathy. There is no acute or suspicious osseous abnormality. IMPRESSION: 1. 0.4 cm left ureteral calculus with mild left hydronephrosis and perinephric fat stranding. 2. Nonobstructing left inferior pole renal calyx calculi. 3. Mild left basal airspace disease with trace left pleural effusion. /[place] DICTATED BY: FLORENTIN VILLA Jr., MD DATE: 06/17/251803 ELECTRONICALLY SIGNED BY: FLORENTIN VILLA Jr., MD DATE: 06/17/251803 ASSESSMENT: Symptomatic left-sided nephrolithiasis Mild left hydroureteronephrosis secondary to nephrolithiasis Hematuria Hepatomegaly Splenomegaly Obesity BMI 36.1 Newly diagnosed DM Type 2 with hyperglycemia, HbA1c of 11 PLAN: Symptomatic left-sided nephrolithiasis, Mild left hydroureteronephrosis s econdary to nephrolithiasis: * Patient on iv fluids, flomax, morphine and ketarolac * Urology consulted who recommended the above treatment and then to have a CT ordered for future recommendations * perfomed a repeat CT which showed the stone still present, will wait on urology for further recommendations Hematuria: * Patient noticed change in blood color to dark brown at home, one of the reasons he came to the hospital * Patients Urinanalysis showed Large occult blood. relted to nephrolithiasis * will manage symptomatically Newly diagnosed DM Type 2 with hyperglycemia, HbA1c of 11 * Patients random blood glucose at the time of admission around 250, performed HbA1c which came back at 11 * Patient currently on sliding scale insulin * Will start patient on metformin at time of discharge Hepatomegaly, Splenomegaly * Seen on CT imaging * Patient's lab levels showed normal levels. ATTESTATION BY PHYSICIAN I have seen and examined the patient. I reviewed the documentation, medical decision making, and treatment plan as noted by the resident provider above. I agree with the findings and plan of care. Stephania Cleaning MD, ABHINAV MD Jun 17, 2025 17:40
--- NOTE | 2025-06-17 20:56 | PN ---
PROGRESS NOTE Date of Service: Jun 17, 2025 Time of Service: 20:53 SUBJECTIVE: Patient continues to be symptomatic. The symptom severity is not as intense as when he 1st came to the hospital. The primary team repeated a CT stone protocol today and there has not been much progressive movement of the stone. REVIEW OF SYSTEMS CONSTITUTIONAL: Denies fever, chills, or fatigue. HEAD/FACE: No signs of trauma. EENT: Denies eye pain, blurred vision, double vision, or light sensitivity. RESPIRATORY: Denies shortness of breath, cough, wheezing CARDIOVASCULAR: Denies chest pain, palpitation, syncope GASTROINTESTINAL/ABDOMINAL: Denies abdominal pain, constipation, diarrhea, nausea or vomiting GENITOURINARY: Denies dysuria or hematuria. MUSCULOSKELETAL: Denies joint pain, tenderness, or trauma. INTEGUMENTARY: Denies rash or itchiness NEUROLOGICAL/PSYCH: Denies anxiety, depression, heat or cold intolerance. PHYSICAL EXAM EYES: Anicteric. Pupils equal and reactive. HENT: No oral thrush seen, moist Oral mucosa NECK: Supple, no JVD or thyromegaly. LUNGS: Good air entry. No rales, no rhonchi. CARDIOVASCULAR: S1, S2 regular. No murmur heard. ABDOMEN: Soft, non tender, bowel sounds present, no organomegaly CENTRAL NERVOUS SYSTEM: Awake, alert, oriented x 3. No focal deficits. SKIN: No rashes, no swelling. LYMPHATICS: No peripheral lymphadenopathy MUSCULOSKELETAL: No joint swelling, erythema or tenderness. EXTREMITIES: No cyanosis or clubbing BACK: No deformity, no pressure ulcer. GENITOURINARY: Noncontributory Vital Signs (last 8hr) Date Time Temp Pulse Resp B/P (MAP) Pulse Ox O2 Delivery O2 Flow Rate FiO2 06/17/25 19:45 98.2 99 20 147/103 97 Room Air 21 06/17/25 16:07 99.0 93 16 143/98 99 Room Air LABS: Laboratory: Test 06/17/25 19:35 06/17/25 15:57 06/17/25 03:54 06/16/25 08:33 Range/Units Whole Blood Glucose 179 H 70-110 MG/DL Bedside Glucose Comment Notified Nurse White Blood Count 10.9 H 4.8-10.8 K/uL Red Blood Count 5.24 4.50-6.20 MIL/uL Hemoglobin 14.8 14.0-18.0 g/dL Hematocrit 43.4 42-54 % Mean Corpuscular Volume 82.8 79-99 fL Mean Corpuscular Hemoglobin 28.2 27.0-33.0 pg Mean Corpuscular Hemoglobin Concent 34.1 32.0-36.0 g/dL Red Cell Distribution Width 12.0 11.0-15.5 % Platelet Count 158 130-400 K/uL Mean Platelet Volume 10.9 H 7.5-10.5 fL Immature Granulocyte % (Auto) 0.4 0-1 % Neutrophils (%) (Auto) 78.2 H 40.0-77.0 % Lymphocytes (%) (Auto) 12.7 L 21.0-51.0 % Monocytes (%) (Auto) 7.7 3.0-13.0 % Eosinophils (%) (Auto) 0.6 0.0-8.0 % Basophils (%) (Auto) 0.4 0.0-5.0 % Neutrophils # (Auto) 8.5 H 1.8-7.7 K/uL Lymphocytes # (Auto) 1.4 1.0-4.8 K/uL Monocytes # (Auto) 0.8 0.1-1.0 K/uL Eosinophils # (Auto) 0.06 0.00-0.70 K/uL Basophils # (Auto) 0.04 0.00-0.20 K/uL Absolute Immature Granulocyte (auto 0.04 0-1 K/uL Nucleated Red Blood Cells 0.0 0.0-0.19 % Sodium Level 136 136-145 mmol/L Potassium Level 3.6 3.5-5.1 mmol/L Chloride Level 101 101-111 mmol/L Carbon Dioxide Level 25 21-32 mmol/L Blood Urea Nitrogen 10 7-18 mg/dL Creatinine 1.4 H 0.5-1.3 mg/dL Glomerular Filtration Rate Calc 68 >90 mL/min Random Glucose 173 H 70-105 mg/dL Total Calcium 8.2 L 8.5-10.1 mg/dL Thyroid Stimulating Hormone (TSH) 0.76 0.36-3.74 uIU/mL Urine Color LIGHT-YELLOW YELLOW Urine Appearance CLEAR CLEAR Urine pH 5.5 5.0-8.0 Urine Specific [place] 1.012 1.001-1.031 Urine Protein NEGATIVE NEGATIVE mg/dL Urine Glucose (UA) >=1000 H NEGATIVE mg/dL Urine Ketones NEGATIVE NEGATIVE mg/dL Urine Occult Blood LARGE H NEGATIVE Urine Nitrate NEGATIVE NEGATIVE Urine Bilirubin NEGATIVE NEGATIVE mg/dL Urine Urobilinogen 0.2 0.2-1.0 mg/dL Urine Leukocyte Esterase NEGATIVE NEGATIVE Meghann/uL Urine RBC TNTC H 0-1 /HPF Urine WBC 2-5 H 0-1 /HPF Urine Bacteria None None Seen /HPF Test 06/16/25 06:38 Range/Units Hemoglobin A1c 11.1 H 4.0-6.0 % Estimated Average Glucose (eAG) 272 H 70-126 mg/dL Total Bilirubin 0.4 0.2-1.0 mg/dL Direct Bilirubin 0.1 0.0-0.3 mg/dL Aspartate Amino Transf (AST/SGOT) 32 10-37 U/L Alanine Aminotransferase (ALT/SGPT) 69 12-78 U/L Alkaline Phosphatase 147 H 50-136 U/L Total Protein 7.2 6.0-8.3 g/dL Albumin 3.7 3.5-5.0 g/dL Lipase 76 16-77 U/L DIAGNOSTICS / RADIOLOGY: CT abdomen and pelvis 06/16/2025, stone protocol, evidence of a 3-4 mm left proximal ureteral calculus with mild hydroureteronephrosis. There are nonobstructing calyceal stones, more stone burden on the left than on the right. CT abdomen and pelvis 06/17/2025, stone protocol, there has not been much forward progression of the 4 mm stone. There still mi left-sided hydrouretero nephrosis. ASSESSMENT: 34-year-old man presents to the hospital secondary to renal colic symptoms caused by 3-4 mm stone in the left proximal ureter. PLAN: 1. Continue supportive care, aggressive pain management, Ketoralac has been shown to work very well, fluid management and nausea control if any. 2. Repeat CT scan obtained today 06/17/2025 was reviewed. There has not been much progression of the stone. 3. We will start planning a surgical intervention for this patient. Patient will be made NPO tomorrow 06/18/2025 after breakfast in case we have the opportunity to bring him to the operating room tomorrow evening for stone treatment versus stent placement. If not possible because of schedule, then we will make another attempt on Tuesday06/19/2025. 30 minutes spent to complete his visit, more than half of the time was spent in counseling and coordination of care and addressing questions posed by patient. Some time was spent discussing with members of his care team. The rest of the time was spent reviewing medical records. SUSIE RHODES MD Jun 17, 2025 20:56
[2025-06-18] VITALS (18 sets, daily range): BP systolic 116–164; BP diastolic 64–95; PULSE 71–98; RESP 15–20; TEMP 97–98.8; O2SAT 98
[2025-06-18 03:34] LABS: NUCLEATED RED BLOOD CELLS 0.0 % (0.0-0.19); PLATELET COUNT (AUTO) 157.0 K/uL (130-400); RED BLOOD CELL COUNT(AUTO) 4.99 MIL/uL (4.50-6.20); RED CELL DISTRIBUTION WIDTH 11.9 % (11.0-15.5); WHITE BLOOD COUNT (AUTO) 9.7 K/uL (4.8-10.8)
[2025-06-18 03:44] LABS: CREATININE 1.3 mg/dL (0.5-1.3); GLOMERULAR FILTR. RATE CALC 74.0 mL/min (>90); GLUCOSE,RANDOM 169.0 mg/dL (70-105); SODIUM SERUM 136.0 mmol/L (136-145); UREA NITROGEN, BLOOD 12.0 mg/dL (7-18)
--- NOTE | 2025-06-18 10:34 | PN ---
[facility] PROGRESS NOTE Date of Service: Jun 18, 2025 Time of Service: 10:27 SUBJECTIVE: 34-year-old male with no significant past medical history presented to the hospital secondary to abdominal pain. Patient states his pain started today around 5:00 a.m.. The pain was located in the left lower quadrant radiating from his left flank area. Denied any nausea, vomiting, fever, chills, diarrhea, constipation associated with the pain. Denied any chest pain, shortness of breath, cough, sputum production. Denied any dysuria, hematuria. The patient has more darkish color urine from before. He denies any previous history of nephrolithiasis. Denied any previous passage of kidney stones. He has a history of gout which is controlled at this time. He does not take any medications at home. Labs were notable for white count of 9.4, hemoglobin was 16.1, platelet count was 208 K, sodium was 134, potassium was 3.9, blood glucose 257, calcium was 8.3, lipase was [address] abdomen pelvis which showed left ureteral calculus 3.8 mm with mild hydroureteronephrosis and perinephric fat stranding. He also had nonobstructing calculi in the lower calyces of the bilateral kidney. Largest was noted to measure around a 5.3 Mm in the lower calyx of the left kidney. Was noted to have hepatomegaly and splenomegaly. There was a umbilical hernia containing omental fat. 06/17/25: Patient appeared stable but still in pain. His vitals are mostly stable with his temperature at 98.2, pulse at 99, respiratory rate at 20 and blood pressure at 147/103, breathing comfortably on room air. He is on morphine 2 mg and ketoralac 15 mg for the pain. He has also juliano started on IV fluids and Flomax per urology recommendation. Urology also recommended, that they will give patient at least a 24-48 hour window to see if he is able to pass the stone. Normally we will repeat a CT imaging at that time they make a decision about surgical intervention if no change in clinical picture. So we performed a repeat CT in the evening today which showed the stone has moved from proximal ureter to mid ureter. We will wait for recommendation from urology for further treatment. Patient also seen with hepatomegaly and splenomegaly since the first CT, but patients LFTs and remaining labs are normal. 06/18/25: Patient is seen and examined in room 424. Patient is stable his pain has improved. Urology saw him last night and went over the new CT results recommended surgical intervention. Patient will be made NPO today 06/18/2025 after breakfast in case they have the opportunity to bring him to the operating room today evening for stone treatment versus stent placement. If not possible because of schedule, then we will make another attempt on Tuesday06/19/2025. Patient continues to be on IV therapy, Flomax, pain medication. REVIEW OF SYSTEMS CONSTITUTIONAL: Denies fevers, chills, or night sweats. No unintentional weight loss reported. NEUROLOGICAL: Denies headache, motor weakness, sensory deficit, vertigo/spinning sensation, gait abnormalities, or tremors. ENT: No hearing loss, rhinitis, rhinorrhea, hoarseness, or sore throat. CARDIOVASCULAR: Denies any exertional angina, dyspnea on exertion, orthopnea, paroxysmal nocturnal dyspnea PULMONARY: Denies any shortness of breath, cough, phlegm/sputum, hemoptysis, pleuritic chest pain. GASTROINTESTINAL: Positive for abdominal pain. Denied any nausea, vomiting, changes in his bowel movement. GENITOURINARY: Denies frequency, urgency, nocturia, hematuria or incontinence ENDOCRINOLOGIC: Denies polyuria, polydipsia, polyphagia or heat/cold intolerances. HEMATOLOGIC: Denies thrombophilia/previous clots, or coagulopathy/bleeding disorders. DERMATOLOGIC: Denies rashes or pruritus. PHYSICAL EXAM GENERAL APPEARANCE: The patient is awake, alert, and oriented, in no acute cardiopulmonary distress. NEUROLOGICAL: Cranial nerves II-XII grossly intact. Motor is 5/5 in bilateral upper and lower extremities proximal to distal. No sensory deficits. HEENT: Face is symmetric. Pupils are equal and reactive. Extraocular movements are intact. NECK: Supple. No JVD. No thyromegaly. No lymphadenopathy. CHEST: Normal chest expansion. No Telemetry. LUNGS: Absence of any rales, rhonchi or any wheezing. CARDIOVASCULAR: Regular. S1 and S2 normal. No appreciable rubs, murmurs or gallops. ABDOMEN: Soft, nontender, and nondistended. There is no rebound, voluntary guarding, or rigidity. : Deferred. No Li. No CVA tenderness EXTREMITIES: Non-edematous and not cyanotic. No clubbing. Good capillary refill. SKIN: No skin breakdown. Vital Signs (last 8hr) Date Time Temp Pulse Resp B/P (MAP) Pulse Ox O2 Delivery O2 Flow Rate FiO2 06/18/25 07:48 98.4 78 18 124/69 98 Room Air 06/18/25 03:36 98.2 71 18 125/84 96 Room Air 21 LABS: Laboratory: Test 06/18/25 05:02 06/18/25 03:17 06/17/25 15:57 06/17/25 03:54 Range/Units Whole Blood Glucose 167 H 70-110 MG/DL White Blood Count 9.7 4.8-10.8 K/uL Red Blood Count 4.99 4.50-6.20 MIL/uL Hemoglobin 14.2 14.0-18.0 g/dL Hematocrit 40.0 L 42-54 % Mean Corpuscular Volume 80.2 79-99 fL Mean Corpuscular Hemoglobin 28.5 27.0-33.0 pg Mean Corpuscular Hemoglobin Concent 35.5 32.0-36.0 g/dL Red Cell Distribution Width 11.9 11.0-15.5 % Platelet Count 157 130-400 K/uL Mean Platelet Volume 10.4 7.5-10.5 fL Nucleated Red Blood Cells 0.0 0.0-0.19 % Sodium Level 136 136-145 mmol/L Potassium Level 3.6 3.5-5.1 mmol/L Chloride Level 103 101-111 mmol/L Carbon Dioxide Level 27 21-32 mmol/L Blood Urea Nitrogen 12 7-18 mg/dL Creatinine 1.3 0.5-1.3 mg/dL Glomerular Filtration Rate Calc 74 >90 mL/min Random Glucose 169 H 70-105 mg/dL Total Calcium 8.1 L 8.5-10.1 mg/dL Bedside Glucose Comment Notified Nurse Immature Granulocyte % (Auto) 0.4 0-1 % Neutrophils (%) (Auto) 78.2 H 40.0-77.0 % Lymphocytes (%) (Auto) 12.7 L 21.0-51.0 % Monocytes (%) (Auto) 7.7 3.0-13.0 % Eosinophils (%) (Auto) 0.6 0.0-8.0 % Basophils (%) (Auto) 0.4 0.0-5.0 % Neutrophils # (Auto) 8.5 H 1.8-7.7 K/uL Lymphocytes # (Auto) 1.4 1.0-4.8 K/uL Monocytes # (Auto) 0.8 0.1-1.0 K/uL Eosinophils # (Auto) 0.06 0.00-0.70 K/uL Basophils # (Auto) 0.04 0.00-0.20 K/uL Absolute Immature Granulocyte (auto 0.04 0-1 K/uL Thyroid Stimulating Hormone (TSH) 0.76 0.36-3.74 uIU/mL Current Medications Medications (Trade) Dose Ordered Sig/[place] Route PRN Reason Start Time Stop Time Status Last Admin Dose Admin Acetaminophen (TYLenol 500MG TAB) 500 mg Q6H PRN PO MILD PAIN (1-3) 06/16/25 11:30 07/16/25 11:29 06/16/25 17:49 500 MG Ceftriaxone Sodium (ROCEphine 1G INJ) 1 gm Q24H IVPB 06/17/25 09:00 06/27/25 08:59 06/18/25 08:57 1 GM Dextrose (D50w) 50 ml AD PRN IV HYPOGLYCEMIA PROTOCOL 06/16/25 12:30 07/16/25 12:29 Famotidine (Pepcid 20mg Vial) 20 mg BID IV 06/16/25 21:00 07/16/25 20:59 06/18/25 08:57 20 MG Glucagon (Glucagon 1mg Kit) 1 mg AD PRN IM HYPOGLYCEMIA PROTOCOL 06/16/25 12:30 07/16/25 12:29 Hydralazine HCl (APRESOLine 20MG INJ) 10 mg Q6H PRN IV ADMINISTER FOR SBP > 180 06/16/25 14:00 07/16/25 13:59 Insulin Human Regular (humuLIN R 100 UNIT/ML 3ML) INSULIN SLIDING SCAL... ACHS SQ 06/16/25 16:30 07/16/25 16:29 06/17/25 20:10 2 UNIT Ketorolac Tromethamine (toRADol) 15 mg Q6H PRN IV MODERATE PAIN (4-6) 06/16/25 11:30 06/21/25 11:29 06/18/25 05:12 15 MG Morphine Sulfate (morPHINE 2MG SYG) 2 mg Q6H PRN IVP SEVERE PAIN (7-10) 06/16/25 11:30 06/23/25 11:29 06/17/25 17:46 2 MG Ondansetron HCl (zoFRAN 4MG INJ) 4 mg Q6H PRN IVP NAUSEA/VOMITING 06/16/25 11:30 07/16/25 11:29 Potassium Chloride 100 ml @ 100 mls/hr AD PRN IV POTASSIUM PROTOCOL 06/16/25 11:30 07/16/25 11:29 Potassium Chloride (K-Dur/Klor-Con 20meq) 20 meq AD PRN PO POTASSIUM PROTOCOL 06/16/25 11:30 07/16/25 11:29 06/18/25 09:11 20 MEQ Potassium Chloride (KCl 10% Elixir 20meq/15ml) 20 meq AD PRN PO POTASSIUM PROTOCOL 06/16/25 11:30 07/16/25 11:29 Sodium Chloride 1,000 ml @ 100 mls/hr Q10H IV 06/16/25 11:30 07/16/25 11:29 06/18/25 03:12 100 MLS/HR Tamsulosin HCl (FloMAX) 0.4 mg DAILY PO 06/17/25 09:00 07/17/25 08:59 06/18/25 08:58 0.4 MG DIAGNOSTICS / RADIOLOGY: [place] [address] IMAGING REPORT Signed PATIENT: KJ BAPTISTE MR#: [id number] : 1990 SEX: M AGE: 34 LOCATION: H ORDER [id number] STATUS: ADM IN REPORT#: [id number] SERVICE [id number] REASON: RENAL CALCULI EVALUATION ORDERING PHYSICIAN: STEPHANIA CLEANING MD PROCEDURE: ABD PEL WO - CT ABDOMEN/PELVIS W/O CONTRAST EXAM: CT Abdomen and Pelvis without IV contrast CLINICAL HISTORY: RENAL CALCULI EVALUATION TECHNIQUE: Axial computed tomography images of the abdomen and pelvis without intravenous contrast. CT scan performed according to ALARA. Automated exposure control used during exam. CONTRAST: without intravenous contrast. COMPARISON: CT images dated June 16, 2025 FINDINGS: Mild airspace disease within the left lung base. Trace left pleural effusion. Limited evaluation of the abdominal organs without intravenous contrast. There is no focal abnormality appreciated within the liver; however there is hepatic steatosis. The gallbladder, bilateral adrenal glands, spleen, and pancreas are unremarkable. There is a 0.4 cm calculus within the mid left ureter (approximately 6.0 cm distal to the left ureteropelvic junction) resulting in mild left hydronephrosis and left perinephric fat stranding. Nonobstructing calculi are noted within a left inferior pole renal calyx. No additional radiopaque calculus appreciated. Bowel loops are normal in caliber without evidence of obstruction, ileus, or obvious bowel wall thickening. No CT evidence of acute appendicitis. The mild to within the unopacified bladder. Prostate and seminal vesicles are normal in caliber. There is no ascites or lymphadenopathy. There is no acute or suspicious osseous abnormality. IMPRESSION: 1. 0.4 cm left ureteral calculus with mild left hydronephrosis and perinephric fat stranding. 2. Nonobstructing left inferior pole renal calyx calculi. 3. Mild left basal airspace disease with trace left pleural effusion. /Cody DICTATED BY: FLORENTIN VILLA Jr., MD DATE: 06/17/251803 ELECTRONICALLY SIGNED BY: FLORENTIN VILLA Jr., MD DATE: 06/17/251803 ASSESSMENT: Symptomatic left-sided nephrolithiasis Mild left hydroureteronephrosis secondary to nephrolithiasis Hematuria Hepatomegaly Splenomegaly Obesity BMI 36.1 Newly diagnosed DM Type 2 with hyperglycemia, HbA1c of 11 PLAN: Symptomatic left-sided nephrolithiasis, Mild left hydroureteronephrosis secondary to nephrolithiasis: * Patient on iv fluids, flomax, morphine and ketarolac * perfomed a repeat CT yesterday evening which showed the stone still present, seen by urology * Urology recommended surgical intervention today. Patient undergoing procedure at 7:00 p.m. NPO after 11 am Hematuria: * Patient noticed change in blood color to dark brown at home, one of the reasons he came to the hospital * Patients Urinalysis showed Large occult blood. related to nephrolithiasis * will manage symptomatically Newly diagnosed DM Type 2 with hyperglycemia, HbA1c of 11 * Patients random blood glucose at the time of admission around 250, performed HbA1c which came back at 11. Today in the range of 160s * Patient currently on sliding scale insulin * Will start patient on metformin at time of discharge Hepatomegaly, Splenomegaly * Seen on CT imaging * Patient's lab levels like LFTs showed normal levels. Patient on famotidine 20 mg for GI prophylaxis We will request labs in am Further orders to follow depending on above results ATTESTATION BY PHYSICIAN I have seen and examined the patient. I reviewed the documentation, medical decision making, and treatment plan as noted by the resident provider above. I agree with the findings and plan of care. Stephania Cleaning MD, ABHINAV MD Jun 18, 2025 10:34
[2025-06-18] MEDS ORDERED: MIDAZOLAM HCL 1 MG/ML 2ML VIAL ONE (19:18)
[2025-06-18] MEDS ORDERED: IOHEXOL-350 50ML VIAL IV ONE (19:46)
--- NOTE | 2025-06-18 19:46 | NUR ---
PATIENT TRANSFERRED OFF FLOOR TO OR.
[2025-06-18] MEDS ORDERED: GLYCOPYRROLATE 0.2 MG/ML 5 ML VIAL ONE (20:48)
[2025-06-18] MEDS ORDERED: NEOSTIGMINE METHYLSULFATE 1MG/ML IV ONE (20:48)
--- NOTE | 2025-06-18 20:53 | NUR ---
PATIENT TRANSFERRED FROM PACU BY [facility]. 18FR MILLER CATHETER NOTED IN PLACE AT THIS TIME. NS AT 100CC/HR TO 20G TO LEFT AC. VITAL SIGNS WITHIN NORMAL LIMITS (SEE EMR). BED IN LOWEST POSITION. CALL LIGHT WITHIN REACH.
--- NOTE | 2025-06-18 20:58 | OP ---
Operative Note: DATE OF PROCEDURE: 06/18/25 SURGEON: SUSIE RHODES MD VIDEO PRODUCTION COORDINATOR: Operating room staff ANESTHESIA: General anesthesia ANESTHESIOLOGIST/WOOD CARVING MACHINE OPERATOR: Anesthesia staff PREOPERATIVE DIAGNOSIS: 1. Obstructing 4 mm left mid ureteral calculus 2. Left hydronephrosis POSTOPERATIVE DIAGNOSIS: 1. Obstructing 4 mm left mid ureteral calculus 2. Left hydronephrosis 3. Meatal stenosis SYNOPSIS: Stone was manipulated and a stent was placed. Patient demonstrated pyonephrosis which precluded us from treating the stone in the same setting PROCEDURE: 1. 79268 Cystourethroscopy with Calibration and dilation of a meatal stenosis. 2. 00538 Cystourethroscopy with manipulation without removal of a left ureteral calculus 3. 29519 Cystourethroscopy with insertion of a left ureteral stent 4. 13440 Left retrograde pyelogram with interpretation ESTIMATED BLOOD LOSS: Minimal INDICATIONS: 34-year-old man was admitted to this facility a few days ago after he presented with severe left flank pain. He was diagnosed with a 4 mm stone in the left mid ureter. Was managed conservatively,48 hours later a repeat CT scan was obtained stone had that made any forward progression. Patient is presenting today with the intention to treat the stone. DESCRIPTION OF PROCEDURE: Patient identified in the holding area, consent verified. Patient received2 g of Ancef and brought to the operating suite. He was placed in the supine position, after induction he underwent general anesthesia. Next it was placed in low lithotomy, his genitalia was prepped he was draped in a time-out was performed. We attempted to introduced a rigid cystoscope, meatus was stenotic. We had to calibrate and dilated using Janeen sounds up to a size28 Q[place]ari. At that time the meatus was able to accommodate the 22 [place] scope. Urethra was normal. Prostatic fossa was age- appropriate. We entered the bladder, severely four quadrants, no abnormalities. Left UO identified cannulated with the open-ended ureteral catheter and a retrograde pyelogram was obtained. Hydronephrosis was evident. The stone was also visualized on fluoroscopy. We then advanced a wire. Once the wire had gone beyond the stone, there was pouring out of purulent drainage from the left collecting system. At this time we made the decision just to simply manipulate the stone. Open-ended ureteral catheter was advanced over the wire stone was pushed to a more dilated part of the ureter. And then we placed a seven [place]ari by 26 cm double-J stent with the appropriate proximal and distal coils. Because of the purulence that was draining we decided to also leave a Li catheter in place for several hours. Patient tolerated the procedure well no complications. SUSIE RHODES MD Jun 18, 2025 20:58
[2025-06-19] VITALS (8 sets, daily range): BP systolic 105–132; BP diastolic 64–80; PULSE 74–95; RESP 17–20; TEMP 97.5–98.3; O2SAT 99
[2025-06-19 03:55] LABS: NUCLEATED RED BLOOD CELLS 0.0 % (0.0-0.19); PLATELET COUNT (AUTO) 154.0 K/uL (130-400); RED BLOOD CELL COUNT(AUTO) 4.81 MIL/uL (4.50-6.20); RED CELL DISTRIBUTION WIDTH 12.0 % (11.0-15.5); WHITE BLOOD COUNT (AUTO) 9.6 K/uL (4.8-10.8)
[2025-06-19 04:08] LABS: CREATININE 1.1 mg/dL (0.5-1.3); GLOMERULAR FILTR. RATE CALC 91.0 mL/min (>90); GLUCOSE,RANDOM 132.0 mg/dL (70-105); SODIUM SERUM 134.0 mmol/L (136-145); UREA NITROGEN, BLOOD 11.0 mg/dL (7-18)
[2025-06-19] MEDS ORDERED: LEVO-70 PO (13:13)
[2025-06-19] MEDS ORDERED: TAMS-55 PO (13:13)
[2025-06-19] MEDS ORDERED: METF-444 PO (13:13)
--- NOTE | 2025-06-19 15:41 | DS ---
Discharge Summary Hospital Course Summary: Patient is a 34-year-old male with no significant past medical history presented to the hospital secondary to abdominal pain. Patient states his pain started today around 5:00 a.m.. The pain was located in the left lower quadrant radiating from his left flank area. Denied any nausea, vomiting, fever, chills, diarrhea, constipation associated with the pain. Denied any chest pain, shortness of breath, cough, sputum production. Denied any dysuria, hematuria. The patient has more darkish color urine from before. He denies any previous history of nephrolithiasis. Denied any previous passage of kidney stones. He has a history of gout which is controlled at this time. He does not take any medications at home. Labs were notable for white count of 9.4, hemoglobin was 16.1, platelet count was 208 K, sodium was 134, potassium was 3.9, blood glucose 257, calcium was 8.3, lipase was [address] abdomen pelvis which showed left ureteral calculus 3.8 mm with mild hydroureteronephrosis and perinephric fat stranding. He also had nonobstructing calculi in the lower calyces of the bilateral kidney. Largest was noted to measure around a 5.3 Mm in the lower calyx of the left kidney. Was noted to have hepatomegaly and splenomegaly. There was a umbilical hernia containing omental fat. During his stay the patient was seen by urologist who recommended the patient be on pain medication on morphine2 mg and Kenalog 15 mg, IV fluids and Flomax. They they also recommended to give patient at least a 24-48 hour window to see if he is able to pass the stone. That they will repeat CT imaging to see if the stone has passed or if they need to do a surgical intervention if no change in clinical picture. Next day CT imaging was performed which showed that the stone has moved from proximal ureter to midureter but still present. Later that night urology went over the new CT results and examined the patient after which the recommended surgical intervention. Yesterday the patient was taken to operation room for the procedure where the stone was manipulated and the stent was placed. During the procedure patient demonstrate of pyonephrosis which precluded the urology team from treating the stone in the same setting. At that time they made the decision to just to simply manipulate the stone. And then they placed a seven Israeli by 26 cm double-J stent with the appropriate proximal and distal coils. Because of the purulence that was draining they decided to also leave a Li catheter in place for several hours. Patient tolerated the procedure well no complications. The procedure urology left a note saying "once Li catheter has been discontinued in the afternoon, patient is cleared from a urological standpoint for discharge. Patient can see us in the office in a week to 2 weeks so we can start planning for definitive stone treatment." Today the patient is doing well he was seen and examined at bedside in room 424. He said he did not have any pain but complained of a little discomfort. In the afternoon his Li was removed and he also voided right after. At this point we are discharging the patient with oral antibiotics, metformin for his newly diagnosed diabetes and Flomax for the stone. Patient will follow up with Urology on the appointed date. Patient initial abdomen/pelvis CT showed splenomegaly and hepatomegaly but patient's LFTs and other lab values were normal. No symptoms were also reported. Rug Receiving Clerk(s): Urology - SUSIE RHODES MD - placed a seven Israeli by 26 cm double-J stent with the appropriate proximal and distal coils. We will follow up with the patient as outpatient for removal of the stone Procedure(s): OPERATIVE REPORT Name: KJ BAPTISTE Acct: [id number] MR: [id number] : 1990 Admit Date: 06/16/25 SUSIE RHODES MD [place] [id number] [address] Operative Note: DATE OF PROCEDURE: 06/18/25 SURGEON: SUSIE RHODES MD TECHNOLOGY RESOURCE TEACHER: Operating room staff ANESTHESIA: General anesthesia ANESTHESIOLOGIST/EQUIPMENT COORDINATOR: Anesthesia staff PREOPERATIVE DIAGNOSIS: 1. Obstructing 4 mm left mid ureteral calculus 2. Left hydronephrosis POSTOPERATIVE DIAGNOSIS: 1. Obstructing 4 mm left mid ureteral calculus 2. Left hydronephrosis 3. Meatal stenosis SYNOPSIS: Stone was manipulated and a stent was placed. Patient demonstrated pyonephrosis which precluded us from treating the stone in the same setting PROCEDURE: 1. 10203 Cystourethroscopy with Calibration and dilation of a meatal stenosis. 2. 17674 Cystourethroscopy with manipulation without removal of a left ureteral calculus 3. 15450 Cystourethroscopy with insertion of a left ureteral stent 4. 68680 Left retrograde pyelogram with interpretation ESTIMATED BLOOD LOSS: Minimal INDICATIONS: 34-year-old man was admitted to this facility a few days ago after he presented with severe left flank pain. He was diagnosed with a 4 mm stone in the left mid ureter. Was managed conservatively,48 hours later a repeat CT scan was obtained stone had that made any forward progression. Patient is presenting today with the intention to treat the stone. DESCRIPTION OF PROCEDURE: Patient identified in the holding area, consent verified. Patient received2 g of Ancef and brought to the operating suite. He was placed in the supine position, after induction he underwent general anesthesia. Next it was placed in low lithotomy, his genitalia was prepped he was draped in a time-out was performed. We attempted to introduced a rigid cystoscope, meatus was stenotic. We had to calibrate and dilated using Janeen sounds up to a size28 Israeli. At that time the meatus was able to accommodate the 22 Israeli scope. Urethra was normal. Prostatic fossa was age- appropriate. We entered the bladder, severely four quadrants, no abnormalities. Left UO identified cannulated with the open-ended ureteral catheter and a retrograde pyelogram was obtained. Hydronephrosis was evident. The stone was also visualized on fluoroscopy. We then advanced a wire. Once the wire had gone beyond the stone, there was pouring out of purulent drainage from the left collecting system. At this time we made the decision just to simply manipulate the stone. Open-ended ureteral catheter was advanced over the wire stone was pushed to a more dilated part of the ureter. And then we placed a seven Israeli by 26 cm double-J stent with the appropriate proximal and distal coils. Because of the purulence that was draining we decided to also leave a Li catheter in place for several hours. Patient tolerated the procedure well no complications. SUSIE RHODES MD Jun 18, 2025 20:58 Electronically Signed by: SUSIE RHODES MD06/18/252057 Electronically Co-Signed by: [place] [address] [address] IMAGING REPORT Signed PATIENT: KJ BAPTISTE MR#: [id number] : 1990 SEX: M AGE: 34 LOCATION: [facility] ORDER 1 STATUS: REG ER REPORT#: [id number] SERVICE 1 REASON: severe abdominal painLLQ ORDERING PHYSICIAN: TERRI LOWERY MD PROCEDURE: ABD PEL WO - CT ABDOMEN/PELVIS W/O CONTRAST EXAM: CT Abdomen and Pelvis Without IV contrast CLINICAL HISTORY: severe abdominal painLLQ TECHNIQUE: Axial computed tomography images of the abdomen and pelvis without intravenous contrast. CONTRAST: No IV contrast. COMPARISON: None provided. FINDINGS: LUNG BASES: There is mild dependent airspace disease within the bilateral lower lobes that is presumed to reflect atelectasis. No pleural effusions are seen. LIVER: The liver is enlarged in size. The right hepatic lobe measures up to 22 cm. GALLBLADDER AND BILE DUCTS: The gallbladder appears within normal limits. No radioopaque gallstones are seen. No biliary ductal dilatation is evident. PANCREAS: Unremarkable. SPLEEN: The spleen is enlarged in size, measuring 14.4 cm. ADRENAL GLANDS: Unremarkable. KIDNEYS, URETERS, AND BLADDER: 3.8 mm calculus in the left proximal ureter, approximately 5 cm from the pelviureteric junction, causing mild hydroureteronephrosis with mild perinephric fat stranding. There are a few non-obstructing calculi within the lower calyces of the bilateral kidneys. The largest measures approximately 5.3 mm in the lower calyx of the left kidney. The kidneys appear within normal limits. STOMACH AND BOWEL: Unremarkable appearance of the stomach and bowel. No evidence of bowel obstruction. No evidence suggesting enteritis or colitis. Diverticulosis involving the sigmoid and descending colon, without signs of acute diverticulitis. APPENDIX: No evidence of acute appendicitis on CT examination. PERITONEUM: No free fluid. No free air. There is a hernia defect in the umbilical region measuring approximately 1.5 cm, with herniation of omental fat. LYMPH NODES: No lymphadenopathy is evident. REPRODUCTIVE: Unremarkable as visualized. VASCULATURE: No evidence of abdominal aortic aneurysm. BONES: No aggressive appearing osseous lesion. No acute osseous pathology evident. IMPRESSION: 1. Left ureteral calculus (3.8 mm) with mild hydroureteronephrosis and perinephric fat stranding. 2. Hepatomegaly, with right hepatic lobe measuring up to 22 cm. 3. Splenomegaly, measuring 14.4 cm. 4. Umbilical hernia containing omental fat. /[place] DICTATED BY: FLORENTIN VILLA Jr., MD DATE: 06/16/25 111 ELECTRONICALLY SIGNED BY: FLORENTIN VILLA Jr., MD DATE: 06/16/[address] [address] IMAGING REPORT Signed PATIENT: KJ BAPTISTE MR#: [id number] : 1990 SEX: M AGE: 34 LOCATION: [facility] ORDER 1132 STATUS: ADM IN REPORT#: [id number] SERVICE 1130 REASON: assess Liver ORDERING PHYSICIAN: SRAVANI GAINES MD PROCEDURE: ABDRUQLTD - US ABDOMINAL RUQ\\LTD EXAMINATION: ULTRASOUND OF THE ABDOMEN (LIMITED) WITH COLOR DOPPLER. CLINICAL HISTORY: Assess liver. COMPARISON: CT abdomen and pelvis without contrast from the same day. TECHNIQUE: Real-time grayscale ultrasound images of the abdomen. In addition, color Doppler is medically necessary to perform in order to evaluate vascularity and blood flow. FINDINGS: Liver: Bulky in caliber, the right hepatic lobe measures 19.9 cm in the craniocaudal dimension. There is increased echogenicity of the hepatic parenchyma. There is no focal hepatic abnormality or intrahepatic biliary ductal dilatation. There is normal spectral Doppler of the main portal vein (PSV is 19 cm/s). Gallbladder: Within normal limits with normal wall thickness (0.1 cm). No hyperemia or pericholecystic free fluid. There is no cholelithiasis. Common bile duct is normal in caliber, measuring 0.3 cm. Pancreas: Head and body appear normal in caliber and echotexture. No calcification or dilated pancreatic duct. Tail is obscured by overlying bowel gas. The right kidney is normal in caliber, the right kidney measures 12.9 x 4.9 x 4.2 cm in craniocaudal, AP, and transverse dimensions respectively. There is normal renal cortical thickness, and cortical echogenicity. There is no renal calculus or hydronephrosis. IMPRESSION: Hepatomegaly with hepatic steatosis. Left renal calculi which was seen in CT study from the same day are not visualized. /[place] DICTATED BY: FLORENTIN VILLA Jr., MD DATE: 06/17/25130 ELECTRONICALLY SIGNED BY: FLORENTIN VILLA Jr., MD DATE: 06/17/25130 [address] [address] IMAGING REPORT Signed PATIENT: KJ BAPTISTE MR#: [id number] : 1990 SEX: M AGE: 34 LOCATION: [facility] ORDER 1641 STATUS: ADM IN REPORT#: [id number] SERVICE 1640 REASON: RENAL CALCULI EVALUATION ORDERING PHYSICIAN: STEPHANIA CLEANING MD PROCEDURE: ABD PEL WO - CT ABDOMEN/PELVIS W/O CONTRAST EXAM: CT Abdomen and Pelvis without IV contrast CLINICAL HISTORY: RENAL CALCULI EVALUATION TECHNIQUE: Axial computed tomography images of the abdomen and pelvis without intravenous contrast. CT scan performed according to ALARA. Automated exposure control used during exam. CONTRAST: without intravenous contrast. COMPARISON: CT images dated June 16, 2025 FINDINGS: Mild airspace disease within the left lung base. Trace left pleural effusion. Limited evaluation of the abdominal organs without intravenous contrast. There is no focal abnormality appreciated within the liver; however there is hepatic steatosis. The gallbladder, bilateral adrenal glands, spleen, and pancreas are unremarkable. There is a 0.4 cm calculus within the mid left ureter (approximately 6.0 cm distal to the left ureteropelvic junction) resulting in mild left hydronephrosis and left perinephric fat stranding. Nonobstructing calculi are noted within a left inferior pole renal calyx. No additional radiopaque calculus appreciated. Bowel loops are normal in caliber without evidence of obstruction, ileus, or obvious bowel wall thickening. No CT evidence of acute appendicitis. The mild to within the unopacified bladder. Prostate and seminal vesicles are normal in caliber. There is no ascites or lymphadenopathy. There is no acute or suspicious osseous abnormality. IMPRESSION: 1. 0.4 cm left ureteral calculus with mild left hydronephrosis and perinephric fat stranding. 2. Nonobstructing left inferior pole renal calyx calculi. 3. Mild left basal airspace disease with trace left pleural effusion. /[place] DICTATED BY: FLORENTIN VILLA Jr., MD DATE: 06/17/251803 ELECTRONICALLY SIGNED BY: FLORENTIN VILLA Jr., MD DATE: 06/17/251803 Assessment/Plan: ASSESSMENT: Symptomatic left-sided nephrolithiasis Mild left hydroureteronephrosis secondary to nephrolithiasis Hematuria Hepatomegaly Splenomegaly Obesity BMI 36.1 Newly diagnosed DM Type 2 with hyperglycemia, HbA1c of 11 PLAN: Admission Date: 06/16/25 Discharge Date: 06/19/25 Disposition: Home Condition: Stable Activity: As tolerated Home medications: Continued Discharge medications: Levofloxacin 500 mg, metformin HCl 500 mg, tamsulosin HCl 0.4 mg Follow-up appointment: Follow up with primary care physician within 2-3 days of discharge Follow up With urology on the appointment date given We reinforced the importance of medication adherence and follow-up appointments. Discharge Instructions: Take all prescribed antibiotics exactly as directed, until finished, even if feeling better Continue taking Flomax as prescribed Take metformin as prescribed Avoid strenuous activity and heavy lifting (generally more than 10 lbs) for at least a week Be cautious with bending or twisting movements that might irritate the stent Drink plenty of fluids to flush the kidneys and decrease the chance of stone formation or infectious Call 911 or go to ER if you develop fever, severe abdominal pain or bloating, nausea or vomiting that does not improve, sudden shortness of breath or chest pain. Follow up with primary care physician within 2-3 days of discharge Follow up with Urology on the date of the appointment New Medications: Levofloxacin (Levofloxacin) 500 Mg Tablet 1 TAB PO DAILY for 7 Days, #7 TAB 0 Refills Metformin HCl (Metformin HCl) 500 Mg Tablet 1 TAB PO BID for 30 Days, #60 TAB 0 Refills Tamsulosin HCl (Flomax) 0.4 Mg Cap.er.24h 1 CAP PO DAILY for 15 Days, #15 CAP 0 Refills Time spent arranging discharge: 31-60 minutes ATTESTATION BY PHYSICIAN I have seen and examined the patient. I reviewed the documentation, medical decision making, and treatment plan as noted by the resident provider above. I agree with the findings and plan of care. Stephania Cleaning MD, ABHINAV MD Jun 19, 2025 15:41
== END 2025-06-19 18:20 | disposition home or self-care (01) | DRG 661 ==
LOC: EDH 06:14 → EDHIP 11:24 → 4DH 13:30
PROVIDERS: ADMIT Internal Medicine; ATTEND Internal Medicine
PROC: 0T778DZ Dilation of Left Ureter with Intraluminal Device, Via Natural or Artificial Opening Endoscopic (ICD-10-PCS; principal; 2025-06-18 20:00)
PROC: BT1F1ZZ Fluoroscopy of Left Kidney, Ureter and Bladder using Low Osmolar Contrast (ICD-10-PCS; 2025-06-18 20:00)
DX: N13.2 Hydronephrosis with renal and ureteral calculous obstruction (principal); E66.9 Obesity, unspecified; Z68.36 Body mass index [BMI] 36.0-36.9, adult; R31.9 Hematuria, unspecified; R16.0 Hepatomegaly, not elsewhere classified; R16.1 Splenomegaly, not elsewhere classified; M10.9 Gout, unspecified; R16.2 Hepatomegaly with splenomegaly, not elsewhere classified; E11.65 Type 2 diabetes mellitus with hyperglycemia; K42.9 Umbilical hernia without obstruction or gangrene; N35.911 Unspecified urethral stricture, male, meatal; Z90.49 Acquired absence of other specified parts of digestive tract; Z82.69 Family history of other diseases of the musculoskeletal system and connective tissue
CPT/HCPCS: 36415; 74176; 74420; 76705; 80048; 80076; 81001; 82948; 83036; 83690; 84443; 85025; 85027; 96361; 96374; 99285; A4344; A4354; C1758; C1769; C2617; G0378; J0696; J1815; J1885; J2250; J2270; J2405; J2704; J2710; J3010; J3490; J7030; J7120; Q9967; A4222; A4223; A4358; A4600; A4930; J0690; J1308